=== PATIENT | male | born 1985 | race Caucasian/White ===

== ENCOUNTER 2023-07-28 14:48 | Emergency (ER) | payer MEDICAID ==
[~2023-07-28] VITALS: Ht 170.2 cm; Wt 60.0 kg
[2023-07-28] MEDS: KETOROLAC TROMETH 60MG/2ML VIAL IM ONE (15:30)
[2023-07-28] MEDS: SULFAMETHOX W/TRIMETH(800/160MG) DS TAB PO ONE (15:30)
[2023-07-28] MEDS: NEOMYCIN-BACITRACIN-POLYM UNITDOSE PKG TOP OINT TOP ONE (15:30)
[2023-07-28] MEDS ORDERED: ACET500T58 PO (15:36)
[2023-07-28] MEDS ORDERED: BACDST PO (15:36)
[2023-07-28] MEDS ORDERED: BACIOIN15 TOP (15:36)
[2023-07-28] MEDS: cefTRIAXone SOD 1,000 MG VL IM ONE (16:01)
[2023-07-28 16:08] VITALS: BP 148/67; PULSE 108; RESP 22; TEMP 98.1; O2SAT 97
== END 2023-07-28 16:13 | disposition home or self-care (01) ==
LOC: ER 14:48
DX: S91.302A Unspecified open wound, left foot, initial encounter (principal); S91.301A Unspecified open wound, right foot, initial encounter; X58.XXXA Exposure to other specified factors, initial encounter; Y93.89 Activity, other specified; Y92.89 Other specified places as the place of occurrence of the external cause; Y99.8 Other external cause status
CPT/HCPCS: 96372; 99284; J0696; J1885